=== PATIENT | male | born 2000 ===

== ENCOUNTER 2021-06-11 16:32 | Outpatient (REF) | payer OTHER, SELFPAY ==
[2021-06-13 13:22] LABS: COVID-19 RT-PCR UVMMC Result Negative (Negative)
== END 2021-06-11 16:33 | disposition home or self-care (01) ==
LOC: LBN 16:32
PROVIDERS: Visit Provider Physician Assistant
DX: Z20.822 Contact with and (suspected) exposure to COVID-19 (principal); J06.9 Acute upper respiratory infection, unspecified
CPT/HCPCS: U0003